=== PATIENT | female | born 1940 | race Hispanic/Latino ===

== ENCOUNTER → 2021-03-02 | Day surgery (SDC) | payer MEDICARE ==
[2021-02-28 10:58] LABS: BASOPHILS # (AUTO) 0.1 (0.0-0.1); BASOPHILS % 0.7 % (0.0-1.0); EOSINOPHILS # (AUTO) 0.1 (0.0-0.4); EOSINOPHILS % 0.6 % (0.0-6.0); HEMOGLOBIN 10.6 g/dL (12.0-16.0); LYMPHOCYTES % 31.4 % (18.0-39.1); MEAN CORPUSCULAR HGB CONC 31.2 g/dL (31-35); MEAN CORPUSCULAR VOLUME 96.3 fL (81-99); MONOCYTES # (AUTO) 0.5 (0.2-0.8); MONOCYTES % 5.5 % (4.4-11.3); NEUTROPHILS # (AUTO) 5.7 (2.1-6.9); NEUTROPHILS % 60.4 % (38.7-80.0); PLATELET COUNT 351 x10e3/uL (140-360); RED BLOOD COUNT 3.53 x10e6/uL (3.6-5.1); RED CELL DISTRIBUTION WIDTH 13.2 % (11.7-14.4)
[2021-02-28 11:39] LABS: CALCIUM 9.5 mg/dL (8.4-10.2); CREATININE, SERUM 0.56 mg/dL (0.57-1.11)
[~2021-03-02] MED LIST: B&O 60MG R/S 60 MG SUPP PR ONE; BOTULINUM TOXIN TYPE A 100 UNIT VIAL IM ONE; CEFTRIAXONE 1 GM VIAL ONE; FENTANYL CITRATE/PF 100MCG/2 ML INJ ONE; GABAPENTIN300 MG PO; IOPAMIDOL 300MG/ML 50ML INFUS..BTL IV ONE; LIDOCAINE HCL 2% LOCAL INJ 5 ML SDV VIAL INJ ONE; OMEPRAZOLE40 MG PO; ONDANSETRON HCL INJ 2MG/ML 2ML 2 MG/ML VIAL ONE; PANCRELIPASE PO; POVIDONE IODINE 0.05% 0.05 % ML PO ONE; PROPOFOL IV EMULSION 10 MG/ML 20 ML VIAL ONE; SEVOFLURANE INHAL SOLN 250 ML PEN BTL ONE; SODIUM CHLORIDE 0.9% 50ML 50 ML ONE
[2021-03-02 11:45] VITALS: BP 173/88
== END | disposition home or self-care (01) ==
LOC: OR 09:05
PROVIDERS: ATTEND Urology
DX: N39.46 Mixed incontinence (principal); N39.0 Urinary tract infection, site not specified; N32.81 Overactive bladder; N32.89 Other specified disorders of bladder; R35.1 Nocturia; N81.89 Other female genital prolapse; N81.10 Cystocele, unspecified; N81.6 Rectocele; N95.2 Postmenopausal atrophic vaginitis; K21.9 Gastro-esophageal reflux disease without esophagitis; R53.1 Weakness; R60.0 Localized edema; F41.9 Anxiety disorder, unspecified; Z01.810 Encounter for preprocedural cardiovascular examination; Z01.812 Encounter for preprocedural laboratory examination; Z01.818 Encounter for other preprocedural examination; Z20.822 Contact with and (suspected) exposure to COVID-19
CPT/HCPCS: 36415; 52005; 52287; 71046; 74420; 80048; 85025; 93005; C1758; J0587; J0696; J2001; J2405; J2704; J3010; Q9967; U0002